=== PATIENT | male | born 1995 | race Caucasian/White ===

== ENCOUNTER 2018-08-15 07:18 | Inpatient (IN) ==
[2018-08-15] MEDS ORDERED: Tetanus/Diphtheria Toxoid Adult Vaccine Inj 0.5 ML Vial IM ONE (07:40)
--- NOTE | 2018-08-15 07:51 | ED ---
HPI General Chief Complaint: Psychiatric Symptoms Stated Complaint: Psych Eval/Hand Laceration Time Seen by Provider: 08/15/18 07:35 Source: patient Mode of arrival: ambulatory Limitations: other (Patient is unwilling to elaborate) History of Present Illness MD complaint: Reports other ("Frustration") Onset (ago): unknown Relieving factors: none Exacerbating factors: none Treatments prior to arrival: Reports none If self harm: self-inflicted trauma Related Data Home Medications Medication Instructions Recorded Confirmed No Known Home Medications 08/15/18 08/15/18 Allergies Allergy/AdvReac Type Severity Reaction Status Date / Time shellfish derived Allergy Anaphylaxis Verified 08/15/18 08:50 tree nut Allergy Anaphylaxis Verified 08/15/18 08:50 Review of Systems ROS Unobtainable ROS Unobtainable: unobtainable due to mental condition PMFSH Medical History Medical History Patient denies medical problems (Acute) Surgical History Surgical History No history of previous surgery (Acute) Social History Social History Substance History: Active Abuse Smoking Status: Never smoker How Often Do You Have a Drink Containing Alcohol: Monthly or less Recent Travel in [facility] within the Last 8 Weeks: No Recent Out of Country Travel within the Last 8 Weeks: No Exam Const General: cooperative, healthy appearing, comfortable, no acute distress, well developed and other (No eye contact) Orientation: alert, awake and oriented x3 HENMT Head: normal to inspection, normocephalic and atraumatic Neck Neck: normal visual inspection and full ROM Chest Chest: normal inspection of the chest Resp Effort & Inspection: normal respiratory effort and able to speak in complete sentences Cardio Rate: regular rate Rhythm: regular rhythm Back/Spine/Pelvis Cervical Spine: cervical ROM normal Thoracic/Lumbar Spine: thoraco-lumbar ROM normal Skin General: turgor normal and dry skin Trauma: abrasion (Multiple abrasions on the dorsum of the right hand) Neuro General: alert, awake, oriented x3, moves all extremities and CN's II-XI intact bilaterally Extrem General: normal to inspection and full ROM Psych Appearance: grossly normal Mental Status: mental status grossly normal Speech and Movement: speech and movement normal Mood: congruent mood Affect: indifferent and dysphoric affect Attitude: cooperative Thought Process: normal Course Initial Documented Vital Signs Temperature 97.7 F 08/15/18 07:20 Pulse Rate 84 08/15/18 07:20 Respiratory Rate 15 08/15/18 07:20 Blood Pressure 113/68 08/15/18 07:20 Pulse Oximetry 100 08/15/18 07:20 Last Documented Vital Signs Temperature 97.7 F 08/15/18 07:20 Pulse Rate 97 H 08/15/18 08:03 Respiratory Rate 17 08/15/18 08:03 Blood Pressure 140/86 08/15/18 08:03 Pulse Oximetry 100 08/15/18 08:03 Medical Decision Making MDM Narrative Medical decision making narrative: This patient is brought in by his mother after putting his right fist through a window. He states that his hand does not hurt. He does not know the date of his last tetanus shot. He states that he put his hand through the window "out of frustration." He would like to see a psychiatrist. He is unwilling to elaborate further with me. I have ordered an x-ray of his hand rule out retained glass in the wounds. His tetanus has been updated. Medical screening exam has been initiated. This will be followed by a psych screen. This patient is medically clear to be seen by psychiatry. This patient is being admitted by psychiatry. Medical Screen Exam Complete: Yes Emergency Medical Condition: Yes Differential Diagnosis Differential Diagnosis: My differential diagnosis includes but is not limited to situational anxiety/depression, psychosis, attention seeking behavior Lab Data Result diagrams: 08/15/18 08:05 08/15/18 08:05 Lab Results 08/15/18 08/15/18 Range/Units 08:05 08:05 WBC 5.6 (4.0-11.0) th/mm3 RBC 4.72 (4.50-5.90) mil/mm3 Hgb 14.2 (13.0-17.0) gm/dL Hct 42.6 (39.0-51.0) % MCV 90.3 (80.0-100.0) fL MCH 30.0 (27.0-34.0) pg MCHC 33.3 (32.0-36.0) % RDW 13.6 (11.6-17.2) % Plt Count 198 (150-450) th/mm3 MPV 6.5 L (7.0-11.0) fL Neut % (Auto) 54.6 (16.0-70.0) % Lymph % (Auto) 34.2 (9.0-44.0) % Levy % (Auto) 8.3 H (0.0-8.0) % Eos % (Auto) 2.6 (0.0-4.0) % Baso % (Auto) 0.3 (0.0-2.0) % Neut # (Auto) 3.1 (1.8-7.7) th/mm3 Lymph # (Auto) 1.9 (1.0-4.8) th/mm3 Levy # (Auto) 0.5 (0.0-0.9) th/mm3 Eos # (Auto) 0.1 (0.0-0.4) th/mm3 Baso # (Auto) 0.0 (0.0-0.2) th/mm3 WBC Differential . Differential Comment Auto diff final Sodium 141 (136-145) meq/L Potassium 3.2 L (3.5-5.1) meq/L Chloride 103 (98-107) meq/L Carbon Dioxide 30.0 (21.0-32.0) meq/L Anion Gap 8 (5-15) meq/L BUN 13 (7-18) mg/dL Creatinine 1.21 (0.60-1.30) mg/dL Estimated GFR 76 L (>89) mL/min Random Glucose 107 H (74-106) mg/dL Calcium 8.4 L (8.5-10.1) mg/dL Magnesium 2.1 (1.5-2.5) mg/dL Total Bilirubin 0.4 (0.2-1.0) mg/dL AST 32 (15-37) U/L ALT 63 (12-78) U/L Alkaline Phosphatase 75 (45-117) U/L Total Protein 7.3 (6.4-8.2) g/dL Albumin 4.1 (3.4-5.0) g/dL TSH 1.490 (0.358-3.740) uIU/mL Serum Alcohol Less than 3 (0-5) mg/dL Imaging Data Radiologist's impression: Hand X-Ray 08/15/18 07:40 CONCLUSION: Negative for fracture or dislocation. Followup in 7-10 days is suggested if symptoms persist. Discharge Plan Discharge Disposition Patient Disposition: ED Admit(ED Internal Use Only) Discharge Details Diagnosis: Medical clearance for psychiatric admission Physicians Team ED Provider: Lexus Rader Primary Care Provider: Primary Care Chacha Salguero Rxs /Orders / Referrals /Forms Prescriptions: No Action No Known Home Medications RF: 0 Discharge Interventions Interventions: Vital Signs Last Done: 08/15/18 08:03 Status ED Status: Pending Admission
[2018-08-15 08:17] LABS: Baso % (Auto) 0.3 % (0.0-2.0); Eos # (Auto) 0.1 th/mm3 (0.0-0.4); Eos % (Auto) 2.6 % (0.0-4.0); Hematocrit 42.6 % (39.0-51.0); Hemoglobin 14.2 gm/dL (13.0-17.0); Lymph # (Auto) 1.9 th/mm3 (1.0-4.8); Lymph % (Auto) 34.2 % (9.0-44.0); Mean Corpuscular HGB Conc 33.3 % (32.0-36.0); Mean Corpuscular Volume 90.3 fL (80.0-100.0); Mean Platelet Volume 6.5 fL (7.0-11.0); Mono # (Auto) 0.5 th/mm3 (0.0-0.9); Mono % (Auto) 8.3 % (0.0-8.0); Neut # (Auto) 3.1 th/mm3 (1.8-7.7); Neut % (Auto) 54.6 % (16.0-70.0); Platelet Count 198 th/mm3 (150-450); Red Blood Count 4.72 mil/mm3 (4.50-5.90); Red Cell Distribution Width 13.6 % (11.6-17.2); White Blood Count 5.6 th/mm3 (4.0-11.0)
--- NOTE | 2018-08-15 08:22 | XR ---
EXAM DATE: 08/15/2018 7:56 AM EST AGE/SEX: 23 years / Male INDICATIONS: Patient has pain in 3rd MCPJ from punching wall this morning. CLINICAL DATA: This is the patient's initial encounter. Patient reports that signs and symptoms have been present for 1 day and indicates a pain score of 2/10. MEDICAL/SURGICAL HISTORY: None. None. COMPARISON: No prior exams available for comparison. FINDINGS: Bony structures are intact and in normal alignment. Osseous density is normal. Soft tissues are unre markable. No radiopaque foreign bodies seen. CONCLUSION: Negative for fracture or dislocation. Followup in 7-10 days is suggested if symptoms persist. Electronically signed by: Pete Hanna MD Board Certified Radiologist 08/15/2018 8:21 AM EST
[2018-08-15 08:34] LABS: Alanine Aminotransferase 63 U/L (12-78); Albumin 4.1 g/dL (3.4-5.0); Anion Gap 8 meq/L (5-15); Aspartate Aminotransferase 32 U/L (15-37); Blood Urea Nitrogen 13 mg/dL (7-18); Calcium 8.4 mg/dL (8.5-10.1); Chloride 103 meq/L (98-107); Glomerular Filtration Rate 76 mL/min (>89); Glucose,Random 107 mg/dL (74-106); Magnesium 2.1 mg/dL (1.5-2.5); Potassium 3.2 meq/L (3.5-5.1); Sodium 141 meq/L (136-145)
[2018-08-15 08:44] LABS: Alkaline Phosphatase 75 U/L (45-117); Total Protein 7.3 g/dL (6.4-8.2)
[2018-08-15] MEDS ORDERED: Aluminum/Magnesium/Simethacone Susp 30 ML UDC PO PRN (10:41)
[2018-08-15] MEDS ORDERED: Bisacodyl 10 MG Supp RECTAL PRN (10:41)
--- NOTE | 2018-08-15 11:05 | P.HPPSY ---
Provisional Diagnosis Admission Date: August 15, 2018 07:18 [place] I.: Adjustment disorder with depressed mood, r/o major depressive disorder, history of ADHD, cannabis, amphetamines use disorder [place] II.: Deferred [place] III.: No medical history [place] IV.: Family dynamic problems, not taking psychotropics, using recreational drugs [place] V.: 40 Competence Certification of Person's Competence To Provide Express and Informed Consent I have personally examined German Pool, a person being served at [facility] on, August 15, 2018 1046. Express and informed consent means consent voluntarily given in writing, by a competent person, after sufficient explanation and disclosure of the subject matter involved to enable the person to make a knowing and willful decision without any element of force, fraud, deceit, duress, or other form of constraint or coercion. This person is 18 years of age or older, is not now known to be incompetent to consent to treatment with a guardian advocate, and does not have a health care surrogate or proxy currently making medical treatment decisions. I have found this person to be one of the following: [] Competent to provide express and informed consent, as defined above, for voluntary admission to this facility and is competent to provide express and informed consent for treatment. He/she has the consistent capacity to make well reasoned, willful, and knowing decisions concerning his or her medical or mental health treatment. The person fully and consistently understands the purpose of the admission for examination/placement and is fully capable of personally exercising all rights [place] Incompetent to provide express and informed consent to voluntary admission, and this is incompetent to provide express and informed consent to treatment. The person must be transferred to involuntary status and a petition for a guardian advocate filed with the Circuit Court. [x] Refusing to provide express and informed consent to voluntary admission but is competent to provide express and informed consent for treatment. The person must be discharged or transferred to involuntary status. Form shall be completed within 24 hours of a person's arrival at the receiving facility and filed in the clinical record of each person: 1. Admitted on a voluntary basis 2. Permitted to provide express and informed consent to his/her own treatment 3. Allowed to transfer from involuntary to voluntary status 4. Prior to permitting a person to consent to his or her own treatment after having been previously found incompetent to consent to treatment. History of Present Illness Capacity: Has capacity History of Present Illness: The patient is a 23-year-old man, domiciled with his mother and brother in [place], single, unemployed at the moment, with a psychiatric history of ADHD, cannabis, amphetamines use disorder, occasional use of alcohol , LSD, no previous psychiatric admissions, no previous suicidal attempts, no significant medical history, who was brought to the hospital by his mother for involuntary psychiatric evaluation. Chart was reviewed. This is the first time that the patient is seen by psychiatry in [place]. No collateral information available at the moment. On my psychiatric evaluation I find a patient that is a little bit irritable, guarded, superficially cooperative, sort of difficult to engage in a conversation. The patient reports that this morning his mother asking to fix the toilet, the toilet was leaking water,"I try to do the best I can, but in some way the toilet ended completely broken and I had a huge argument with the mother". After the argument the patient punched a wall having multiple bruises in his right hand as a consequence. The patient reports that his mother has been suggesting persistently to him to come to the ER to have a psychiatric evaluation. He says that he has been depressed , that he has lost the light of his life he can now see the future clearly. He says that since he finished college, he has been thinking in becoming a psychologist, but he does not know if he is going to be able to do this. He reports that for the last month, at least, he has been feeling increasingly isolated, secluded, with a significant decrease self-esteem, generalized pessimism, increased sense of hopelessness, helplessness, worthlessness, with increased sensitivity to rejection and frustration leading to increased use of recreational drugs and isolation. The patient reports that he has had suicidal thoughts, but no plan or intention. The patient reports that he prefers not to speak with anybody, to a avoid friends and do not leave his house. He reports that he has been using marijuana almost every day, he also uses amphetamine quite often, and occasionally use alcohol, LSD and also Xanax, "but not really very often". He also reports that he has been sleeping poorly, no more than 2 hours per night. During my evaluation as the interview progresses the patient become more open, at some point tearful, objectively depressed. He is fully oriented x3, no attention deficit, no fluctuation of consciousness, he is logical, coherent and relevant at the moment of my evaluation. He reports right hand pain, denies withdrawal symptoms. PPHx:with a psychiatric history of ADHD, cannabis, amphetamines use disorder, occasional use of alcohol, LSD, no previous psychiatric admissions, no previous suicidal attempts PMHx:no significant medical history family Hx: No family psychiatric history Substance Hx: Reports daily use of cannabis, frequent use of methamphetamines, occasional use of alcohol and LSD as well as Xanax. social Hx: man, domiciled with his mother and brother in [place], single, unemployed at the moment, Review of Systems All other systems reviewed negative except as stated in HPI Constitutional: Reports lack of energy, Denies anorexia, Denies body ache(s), Denies chills, Denies daytime sleepiness, Denies excessive sweating, Denies fatigue, Denies fever(s), Denies headache(s), Denies increased appetite, Denies malaise, Denies night sweats, Denies weakness, Denies weight gain, Denies weight loss, Denies other Eyes: Denies blind spots, Denies blurry vision, Denies bulging eyes, Denies change in vision, Denies double vision, Denies discharge, Denies dry eyes, Denies floaters, Denies irritation, Denies itchy eyes, Denies loss of vision, Denies pain, Denies requires corrective lenses, Denies sensitivity to light, Denies other Cardiovascular: Denies chest pain, Denies chest pain at rest, Denies chest pain with activity, Denies excessive sweating, Denies fainting, Denies fast heart rate, Denies foot swelling, Denies generalized swelling, Denies irregular heart rhythm, Denies leg pain with activity, Denies leg sores, Denies leg swelling, Denies lightheadedness, Denies radiating jaw, neck or arm pain, Denies rapid, pounding, or irregular heartbeat, Denies shortness of breath, Denies shortness of breath with activity, Denies shortness of breath when lying down, Denies shortness of breath causing sudden awakening, Denies slow heart rate, Denies other Respiratory: Denies change in phlegm color, Denies chest congestion, Denies cough, Denies coughing up blood, Denies excessive phlegm production, Denies pain on inspiration, Denies pain with cough, Denies shortness of breath, Denies shortness of breath with activity, Denies snoring, Denies stridor, Denies wheezing, Denies other Gastrointestinal: Denies abdominal pain, Denies belching, Denies black, tarry stools, Denies bloating, Denies bright, red blood in stools, Denies change in bowel habits, Denies constant urge to pass stool, Denies change in stools, Denies coffee ground vomit, Denies constipation, Denies cramping, Denies difficulty swallowing, Denies excessive passing of gas, Denies feeling full early, Denies heartburn, Denies incontinent of stools, Denies loose stools, Denies nausea, Denies pain with swallowing, Denies vomiting, Denies vomiting blood, Denies other Genitourinary: Denies blood in semen, Denies blood in urine, Denies decreased urination, Denies difficulty urinating, Denies difficulty with ejaculations, Denies erectile dysfunction, Denies genital lesions, Denies genital pain, Denies painful urination, Denies side pain, Denies frequent nighttime urination , Denies painful ejaculations, Denies penile discharge, Denies scrotal swelling , Denies testicle lump, Denies testicle pain, Denies urinary frequency, Denies urinary hesitancy, Denies urinary incontinence, Denies urinary urgency, Denies other Musculoskeletal: Reports other (Pain in the right hand), Denies abnormal walking , Denies back pain, Denies body aches, Denies decreased muscle mass, Denies deformity, Denies joint pain, Denies joint swelling, Denies limited joint movement, Denies loss of height, Denies muscle cramps, Denies muscle weakness, Denies neck pain, Denies numbness, Denies radiating pain into limb, Denies stiffness, Denies tingling Neurologic: Denies abnormal hearing, Denies abnormal movements, Denies abnormal speech, Denies abnormal walking, Denies behavioral changes, Denies burning sensations, Denies confusion, Denies dizziness, Denies fainting, Denies frequent falls, Denies headache(s), Denies lack of coordination, Denies localized weakness, Denies loss of vision, Denies memory loss, Denies numbness, Denies other visual disturbances, Denies radiating pain, Denies restless legs, Denies convulsions, Denies seizure-like activity, Denies sensory deficit, Denies tingling, Denies tingling/numbness/burning sensations, Denies tremor(s), Denies unsteadiness, Denies weakness, Denies other Psychiatric: Reports anxiety, Reports behavioral changes, Reports change in appetite, Reports depression, Reports hopelessness, Reports mood swings, Denies abnormal sleep pattern, Denies change in sex drive, Denies confusion, Denies difficulty concentrating, Denies hearing things others do not hear, Denies irritability, Denies lack of enjoyment, Denies memory loss, Denies panic attacks , Denies paranoia, Denies seeing things others do not see, Denies sensing things others do not sense, Denies tactile hallucinations, Denies thoughts of hurting/killing others, Denies thoughts of hurting/killing yourself, Denies other PMFSH - History History Provided By: Patient - Medical History Medical History: Medical History (Last Updated 08/15/18 @ 07:53 by Jackie Lai RN) Patient denies medical problems - Surgical History Surgical History: Surgical History (Last Updated 08/15/18 @ 07:53 by Jackie Lai RN) No history of previous surgery - Tobacco History Smoking Status: Never smoker - Alcohol History How Often Do You Have a Drink Containing Alcohol: Monthly or less - Substance Use History Substance History: Active Abuse - Substance Use Type Marijuana Status: Active Route Used: Inhalation LSD, Mushrooms Status: Active Route Used: By Mouth - Travel History Recent Travel in the [facility] Within the Last 8 Weeks: No Recent Travel Out of the Country Within the Last 8 Weeks: No - Immunization History Tetanus Immunization: >5 Years Medications and Allergies Active Medications: Active Medications Al Hydrox/Mg Hydrox/Simethicone (Mag-Al Plus Susp Liq) 30 ml PO Q6H PRN PRN Reason: DYSPEPSIA Al Hydroxide/Mg Hydroxide (Milk Of Magnesia Liq) 30 ml PO Q12H PRN PRN Reason: Mild Constipation Bisacodyl (Dulcolax Supp) 10 mg RECTAL DAILY PRN PRN Reason: SEVERE CONSITIPATION Lactulose (Lactulose Liq) 30 ml PO DAILY PRN PRN Reason: SEVERE CONSITIPATION Senna/Docusate Sodium (Meseret-Colace) 1 tab PO BID WOOD Sennosides (Senokot) 17.2 mg PO Q12H PRN PRN Reason: Moderate Constipation Allergies Allergy/AdvReac Type Severity Reaction Status Date / Time shellfish derived Allergy Anaphylaxis Verified 08/15/18 08:50 tree nut Allergy Anaphylaxis Verified 08/15/18 08:50 Home Medications Medication Instructions Recorded Confirmed Type No Known Home Medications 08/15/18 08/15/18 History Results - Labs CBC & Chem 7: 08/15/18 08:05 08/15/18 08:05 Labs: Laboratory Results - last 24 hr 08/15/18 08/15/18 08:05 08:05 WBC 5.6 RBC 4.72 Hgb 14.2 Hct 42.6 MCV 90.3 MCH 30.0 MCHC 33.3 RDW 13.6 Plt Count 198 MPV 6.5 L Neut % (Auto) 54.6 Lymph % (Auto) 34.2 Craig % (Auto) 8.3 H Eos % (Auto) 2.6 Baso % (Auto) 0.3 Neut # (Auto) 3.1 Lymph # (Auto) 1.9 Craig # (Auto) 0.5 Eos # (Auto) 0.1 Baso # (Auto) 0.0 WBC Differential . Differential Comment Auto diff final Sodium 141 Potassium 3.2 L Chloride 103 Carbon Dioxide 30.0 Anion Gap 8 BUN 13 Creatinine 1.21 Estimated GFR 76 L Random Glucose 107 H Calcium 8.4 L Magnesium 2.1 Total Bilirubin 0.4 AST 32 ALT 63 Alkaline Phosphatase 75 Total Protein 7.3 Albumin 4.1 TSH 1.490 Serum Alcohol Less than 3 - Imaging Impressions Hand X-Ray 08/15/18 07:40 CONCLUSION: Negative for fracture or dislocation. Followup in 7-10 days is suggested if symptoms persist. Exam Vital signs: Vital Signs 08/15/18 07:20 08/15/18 08:03 Temperature 97.7 F Pulse Rate 84 97 H Respiratory Rate 15 17 Blood Pressure 113/68 140/86 Pulse Oximetry 100 100 Intake & Output 08/14/18 08/15/18 08/15/18 18:59 06:59 18:59 Weight 49.442 kg Narrative: No tremors, no EPS, no psychomotor agitation retardation, no withdrawal symptoms , - Constitutional no acute distress - Routine HEENT Exam Head: Present: normocephalic, atraumatic Eye: Present: EOMI ENT: Present: mucous membranes moist Mental Status Examination Appearance: Appropriate Consciousness: Alert Orientation: x4 Motor Activity: Normal gait Speech: Unremarkable Language: Adequate Fund of Knowledge: Adequate Attention and Concentration: Adequate Memory: Unremarkable Mood: Sad, Oppositional Affect: Irritable, Sad Thought Process & Associations: Intact Thought Content: Appropriate Hallucination Type: None Delusion Type: None Suicidal Ideation: No Suicidal Plan: No Suicidal Intention: No Homicidal Ideation: No Homicidal Plan: No Homicidal Intention: No Insight: Fair Judgment: Impulsive Assessment and Plan - Assessment (1) Acute adjustment disorder with depressed mood Code(s): F43.21 - Adjustment disorder with depressed mood Status: Acute (2) Insomnia Code(s): G47.00 - Insomnia, unspecified Status: Acute - Plan Plan: On psychiatric evaluation today the patient presents objectively depressed, sad , tearful, superficially cooperative, initially oppositional. The patient reports that for at least the last month he has been feeling increasingly depressed, with increased sense of hopelessness, helplessness, worthlessness, decreased self esteem, problems sleeping at night, he has insomnia, not sleeping more than 2 hours/day, loss of appetite, loss of energy and interest in recreational activities, permanent irritability, increased use of illegal drugs and even suicidal thoughts. He says that as a consequence of this he has been increasingly isolated, no interacting with friends, having frequent arguments with his family. Patient says that he is unable to see the future, that he feels "completely under the weather"he needs help. The patient will be admitted in psychiatry voluntarily to start a psychotropic regimen, individual and group therapy. He has a psychiatric history of ADHD, he has been experimenting with different drugs including cannabis, alcohol, hallucinogens, amphetamines. We will start the patient Wellbutrin 75 mg twice daily for his depression. Trazodone 50 mg at bedtime for depression and also to help with sleep. Transfer patient to [address]. Extensive support, motivation, psych education provided. Justification for Continued Inpatient Stay: Patient needs psychiatric admission.
[2018-08-15] MEDS: buPROPion 75 MG Tablet PO SCH ×2 (11:48→21:12)
[2018-08-15 11:56] LABS: Amphetamine Screen,Urine Neg (Neg); Barbiturate Screen,Urine Neg (Neg); Cannabinoid Screen,Urine Pos (Neg); Cocaine Screen,Urine Neg (Neg); Opiate Screen,Urine Neg (Neg)
[2018-08-15] MEDS: Senna/Docusate Sodium 8.6/50 MG Tablet PO SCH (21:57)
[2018-08-16 06:14] VITALS: BP 103/55; PULSE 94; RESP 16; TEMP 97.9; O2SAT 97
[2018-08-16] MEDS: buPROPion 75 MG Tablet PO SCH (08:40)
[2018-08-16 08:48] LABS: Anion Gap 7 meq/L (5-15); Blood Urea Nitrogen 14 mg/dL (7-18); Calcium 8.9 mg/dL (8.5-10.1); Carbon Dioxide 27.1 meq/L (21.0-32.0); Chloride 106 meq/L (98-107); Cholesterol 118 mg/dL (120-200); Glomerular Filtration Rate Greater Than 89 mL/min (>89); Glucose,Random 72 mg/dL (74-106); Potassium 4.1 meq/L (3.5-5.1); Sodium 140 meq/L (136-145)
[2018-08-16 08:57] LABS: Chol/HDL Ratio 3.22 Ratio; HDL Cholesterol 36.6 mg/dL (40.0-60.0); LDL Cholesterol,Calculated 67 mg/dL (0-99); Triglycerides 73 mg/dL (42-150)
--- NOTE | 2018-08-16 11:54 | P.DSPSY ---
Psychiatry Discharge Summary Inpatient Psychiatric care?: Yes Advance Directives: No Mental Health Advance Directive: No Health Care Proxy: No - Admission Admission Date: August 15, 2018 10:41 Diagnosis specificity: Adjustment disorder with depressed mood Brief History: The patient is a 23-year-old man, domiciled with his mother and brother in [place], single, unemployed at the moment, with a psychiatric history of ADHD, cannabis, amphetamines use disorder, occasional use of alcohol , LSD, no previous psychiatric admissions, no previous suicidal attempts, no significant medical history, who was brought to the hospital by his mother for involuntary psychiatric evaluation. Chart was reviewed. This is the first time that the patient is seen by psychiatry in [place]. No collateral information available at the moment. On my psychiatric evaluation I find a patient that is a little bit irritable, guarded, superficially cooperative, sort of difficult to engage in a conversation. The patient reports that this morning his mother asking to fix the toilet, the toilet was leaking water,"I try to do the best I can, but in some way the toilet ended completely broken and I had a huge argument with the mother". After the argument the patient punched a wall having multiple bruises in his right hand as a consequence. The patient reports that his mother has been suggesting persistently to him to come to the ER to have a psychiatric evaluation. He says that he has been depressed , that he has lost the light of his life he can now see the future clearly. He says that since he finished college, he has been thinking in becoming a psychologist, but he does not know if he is going to be able to do this. He reports that for the last month, at least, he has been feeling increasingly isolated, secluded, with a significant decrease self-esteem, generalized pessimism, increased sense of hopelessness, helplessness, worthlessness, with increased sensitivity to rejection and frustration leading to increased use of recreational drugs and isolation. The patient reports that he has had suicidal thoughts, but no plan or intention. The patient reports that he prefers not to speak with anybody, to a avoid friends and do not leave his house. He reports that he has been using marijuana almost every day, he also uses amphetamine quite often, and occasionally use alcohol, LSD and also Xanax, "but not really very often". He also reports that he has been sleeping poorly, no more than 2 hours per night. During my evaluation as the interview progresses the patient become more open, at some point tearful, objectively depressed. He is fully oriented x3, no attention deficit, no fluctuation of consciousness, he is logical, coherent and relevant at the moment of my evaluation. He reports right hand pain, denies withdrawal symptoms. PPHx:with a psychiatric history of ADHD, cannabis, amphetamines use disorder, occasional use of alcohol, LSD, no previous psychiatric admissions, no previous suicidal attempts PMHx:no significant medical history family Hx: No family psychiatric history Substance Hx: Reports daily use of cannabis, frequent use of methamphetamines, occasional use of alcohol and LSD as well as Xanax. social Hx: man, domiciled with his mother and brother in [place], single, unemployed at the moment, Tobacco Use In Past 30 Days: No How Often Do You Have a Drink Containing Alcohol: Monthly or less Hospital Course: Course in the hospital: Patient admitted and stayed 1 restless night. Patient unable to sleep because of not being in his bed and possibly some noise on the unit. Patient does present with some symptoms of mild depressive disorder that appears to be more situational and related perhaps to irritability that follows the use of Adderall. Patient is also using cannabis on a daily basis but feels he will have no difficulty stopping. Wellbutrin 75 mg twice daily is recommended along with some counseling. - Discharge Discharge Date: 08/16/18 - Discharge Diagnosis (1) Acute adjustment disorder with mixed anxiety and depressed mood Code(s): F43.23 - Adjustment disorder with mixed anxiety and depressed mood Status: Acute (2) Acute adjustment disorder with depressed mood Code(s): F43.21 - Adjustment disorder with depressed mood Status: Acute Discharge Disposition: Home - Discharge Instructions Discharge Diet: Regular Diet Activities You Can Perform: Regular- No Restrictions - Discharge Time > 30 minutes Mental Status Examination Appearance: Appropriate Consciousness: Alert Orientation: x4 Motor Activity: Normal gait Speech: Unremarkable Language: Adequate Fund of Knowledge: Adequate Attention and Concentration: Adequate Memory: Unremarkable Mood: Sad, Oppositional Affect: Irritable, Sad Thought Process & Associations: Intact Thought Content: Appropriate Hallucination Type: None Delusion Type: None Suicidal Ideation: No Suicidal Plan: No Suicidal Intention: No Homicidal Ideation: No Homicidal Plan: No Homicidal Intention: No Insight: Fair Judgment: Impulsive Discharge/Advance Care Plan - Results Vital Signs: Last Vital Signs Temp 97.9 F 08/16/18 06:12 Pulse 94 H 08/16/18 06:12 Resp 16 08/16/18 06:12 BP 103/55 L 08/16/18 06:12 Pulse Ox 97 08/16/18 06:12 Lab Results: Abnormal Lab Results 08/15/18 08/16/18 11:28 07:01 Sodium 140 Potassium 4.1 D Chloride 106 Carbon Dioxide 27.1 Anion Gap 7 BUN 14 Creatinine 1.01 Estimated GFR Greater than 89 Random Glucose 72 L Calcium 8.9 Triglycerides 73 Cholesterol 118 L LDL Cholesterol, Calc 67 HDL Cholesterol 36.6 L Cholesterol/HDL Ratio 3.22 Urine Opiates Screen Neg Ur Barbiturates Screen Neg Ur Amphetamines Screen Neg U Benzodiazepines Scrn Neg Urine Cocaine Screen Neg U Cannabinoids Screen Pos H Laboratory Results Triglycerides 73 mg/dL (42-150) 08/16/18 07:01 Cholesterol 118 mg/dL (120-200) L 08/16/18 07:01 LDL Cholesterol, Calc 67 mg/dL (0-99) 08/16/18 07:01 HDL Cholesterol 36.6 mg/dL (40.0-60.0) L 08/16/18 07:01 TSH 1.490 uIU/mL (0.358-3.740) 08/15/18 08:05 Summary of Procedures: None Imaging: ITS Impressions Hand X-Ray 08/15/18 07:40 CONCLUSION: Negative for fracture or dislocation. Followup in 7-10 days is suggested if symptoms persist. Pending Results: None - Medications Number of antipsychotic medications at discharge: 0 - Discharge Care Plan Goals to Promote Your Health: * To prevent worsening of your condition and complications * To maintain your health at the optimal level Directions to Meet Your Goals: Take your medications as prescribed Follow your dietary instruction Follow activity as directed Keep your appointments as scheduled Take your immunizations and boosters as scheduled If your symptoms worsen call your PCP, if no PCP go to Urgent Care Center or Emergency Room For 16/01 questions related to your inpatient stay or results of tests pending at discharge, please contact Dr. Antwon Tafoya MD at Smoking is Dangerous to Your Health. Avoid second hand smoking
[2018-08-16] MEDS: Senna/Docusate Sodium 8.6/50 MG Tablet PO SCH (12:19)
[2018-08-16 15:50] LABS: Hemoglobin A1c 5.5 % (4.3-6.0)
== END 2018-08-16 12:50 | disposition home or self-care (01) | DRG 882 ==
LOC: NEPE 07:18 → NEDA 10:41 → H260 12:47
PROVIDERS: ADMIT Psychiatry & Neurology Child & Adolescent Psychiatry; ATTEND Psychiatry & Neurology Child & Adolescent Psychiatry